=== PATIENT | female | born 1995 | race Caucasian/White ===

== ENCOUNTER → 2025-04-24 19:20 | Outpatient (ROUT) | payer OTHER, SELFPAY ==
[2025-04-24 19:26] LABS: Add Manual Diff / Slide Review NO; Basophils Absolute Auto 0 /uL (0-100); Basophils Percent Auto 0.4 % (0-2); Eosinophils Absolute Auto 100 /uL (0-450); Eosinophils Percent Auto 1.3 % (2-4); Hemoglobin 10.9 g/dL (12.0-16.0); Lymphocytes Absolute Auto 2000 /uL (1100-4500); Lymphocytes Percent Auto 18.7 % (25-40); Mean Corpuscular Hemoglobin 31.6 PG (26-34); Mean Corpuscular Volume 92.8 fL (80-100); Monocytes Absolute Auto 600 /uL (0-900); Monocytes Percent Auto 5.6 % (3-14); Neutrophils Absolute Auto 7900 /uL (1500-7000); Platelet Count 274 X10^3/uL (150-400); Red Blood Cell Count 3.45 X10^6/uL (4.0-5.2); Red Cell Distribution Width 12.1 % (11.6-14.8); White Blood Cell Count 10.8 X10^3/uL (4.5-11.0)
== END ==
PROVIDERS: Visit Provider Advanced Practice Midwife
DX: O99.019 Anemia complicating pregnancy, unspecified trimester (principal)
CPT/HCPCS: 85025

== ENCOUNTER → 2025-09-21 15:35 | Outpatient (CLI) | payer BC, SELFPAY ==
--- NOTE | 2025-09-21 15:36 | DI.US.S_ITS ---
PROCEDURE: US PELVIC COMPLETE INDICATIONS: CONTINUED BLEEDING - POST ?RETAINED PRODUCTS TECHNIQUE: Real-time scanning was performed of the pelvic organs, with image documentation. Additional endovaginal scanning was necessary due to incomplete visualization of the adnexal and endometrial structures by transabdominal scanning. COMPARISON: None. FINDINGS: The uterus is anteverted and measures 7.0 x 5.9 x 4.0 cm. Endometrial thickness is 13.3 mm. Uterus is heterogenous. Minimal complex fluid in the endometrial canal. Uterine fundus contains hyperechoic heterogenous structure with vascularity measuring approximately 1.1 x 1.7 x 0.9 cm. Cervix is unremarkable. Right ovary measures 2.6 x 1.8 x 1.7 cm with volume 4.2 mL. Left ovary measures 3.1 x 2.3 x 2.1 cm with volume 7.9 mL. Ovaries are unremarkable. No free fluid. IMPRESSION: Consistent with retained products of conception. We strive to produce accurate, complete, and clear reports of imaging services. To assist us in improving patient care, this report was composed using standard report templates and voice recognition software. Therefore, it may contain abnormal punctuation, insertions and/or omissions. Occasional wrong-word or sound-alike substitutions may occur. Though we review the report and make efforts to correct it, we do recommend that the report be read carefully in proper context to recognize any text inaccuracies. Dictated by: Wyatt Alas M.D. on 09/21/2025 at 17:38 Approved by: Wyatt Alas M.D. on 09/21/2025 at 17:40
== END ==
PROVIDERS: Referring Provider Nurse Practitioner Obstetrics & Gynecology; Visit Provider Nurse Practitioner Obstetrics & Gynecology
DX: O72.2 Delayed and secondary postpartum hemorrhage (principal); N93.9 Abnormal uterine and vaginal bleeding, unspecified
CPT/HCPCS: 76830; 76856

== ENCOUNTER → 2025-09-25 11:44 | Outpatient (CLI) | payer BC, SELFPAY ==
[2025-09-25 12:55] LABS: HCG Quantitative /Beta subunit < 2.39 mIU/mL
== END ==
PROVIDERS: Referring Provider Obstetrics & Gynecology; Visit Provider Obstetrics & Gynecology
DX: O73.1 Retained portions of placenta and membranes, without hemorrhage (principal)
CPT/HCPCS: 36415; 84702

== ENCOUNTER 2025-10-08 09:20 | Day surgery (SDC) | payer BC, SELFPAY ==
[2025-09-25 15:13] VITALS: BMI 25.9
[2025-10-08] VITALS (7 sets, daily range): BP systolic 103–119; BP diastolic 64–80; PULSE 67–88; RESP 12–16; TEMP 36.1–36.7; O2SAT 97–99
--- NOTE | 2025-10-08 | PATH_ITS ---
[facility] Accession Number: [id number] No. of containers..01 Tissue . 01 Material submitted: . endometrium - ENDOMETRIAL CONTENTS . 01 Diagnosis: ENDOMETRIAL CONTENTS: Poorly preserved products of conception with associated fibrin and calcification. Background weakly proliferative endometrium with dilated glands, suggestive of exogenous hormone effect; negative for endometrioid intraepithelial neoplasia or malignancy. LYK 10/18/2025 1557 Local . 01 Electronically signed: . Jennifer Stock MD, Pathologist NPI- [id number] . 01 Gross description: . Received in formalin with two patient identifiers, and endometrial contents is a 2.0 x 2.0 x 0.3 cm aggregate of bell-brown, rubbery tissue fragments, entirely submitted in A1. ([id number]) /MRV 10/13/2025 1339 Local . 01 Pathologist provided ICD-10: O73.1 . 01 CPT . 940666 Specimen Comment: A courtesy copy of this report has been sent to [facility] Pathology Performed at: [address] [id number] MD Agus Ferrari MD Phone: [phone]
[2025-10-08] MEDS: ACETAMINOPHEN 325 MG TABLET 975 MG PO (09:50)
[2025-10-08] MEDS: FAMOTIDINE 20 MG/2 ML VIAL IV (09:50)
[2025-10-08] MEDS: LACTATED RINGERS 1,000 ML 42 ML IV (09:52)
--- NOTE | 2025-10-08 10:00 | PM.GYNHP.1 ---
History of Present Illness History of Present Illness Reason for admission: vaginal bleeding Narrative: Annette Nicole is a 30 year old female s/p uncomplicated 07/30/25 ([facility]) presents for scheduled outpatient procedure secondary to persistent bleeding following delivery, abnormal pelvic US suggestive of calcified retained POC. Patient seen in office 09/25/[address] Allan, planned hysteroscopy with myosure resection of any abnormal pathology, concomittant placement of LNG-IUD. Patient denies significant changes in personal health history since time of office encounter. She affirms desire to proceed with procedure as scheduled including placement of Kyleena IUD for purposes of contraception. Surgical consent updated. [facility] Medical History Hip pain, chronic Surgical History History of hip surgery Family History Father Hypertension Grandmother Stroke Brother Ulcerative colitis Social History marital status: number of children: 1 household members: spouse lives independently: Yes caregiver/support person: No education level: master's degree occupational status: unemployed Smoking Status: Never smoker alcohol intake: former substance use type: does not use Meds Home Medications and Allergies Home Medications ?Medication ?Instructions ?Recorded ?Confirmed ?Type vit no.164-ferrous 1 tab PO .qday 07/29/25 10/08/25 History gluconate 6 mg-folate 833.5 mcg DFE tablet (Ellyn PNV) estradiol 10 mcg vaginal tablet 10 mcg vaginal Q3D 09/25/25 10/08/25 History Allergies Allergy/AdvReac Type Severity Reaction Status Date / Time No Known Drug Allergies Allergy Verified 10/08/25 09:42 Review of Systems Review of Systems ROS: Yes All systems reviewed with the patient and are negative except as otherwise documented Exam Vital Signs (past 8 hours): - 10/08/25 09:44 Temperature 98.1 F Pulse Rate 81 Respiratory Rate 16 Blood Pressure 110/80 Pulse Oximetry 98 Oxygen Delivery Method Room Air Oxygen Delivery Method Room Air Const General: cooperative, healthy appearing and comfortable Nutritional Appearance: average body habitus Orientation: alert, awake and oriented x3 Limitations: mental status not altered Resp Effort & Inspection: normal respiratory effort and able to speak in complete sentences Other: deferred Skin General: no rashes or lesions noted Neuro General: patient alert, patient awake and patient oriented x3 Extrem General: normal to inspection Psych Mental Status: mental status grossly normal Judgment: judgment good Assessment & Plan Assessment and plan (1) Retained products of conception after delivery without hemorrhage: Status: Acute Plan 30yo s/p 07/30/25 presents for scheduled outpatient hysteroscopy, persistent bleeding since delivery with abnormal pelvic US Patient affirms clinical history, desire to proceed with procedure as scheduled currently , anesthesia aware UPT negative on arrival dispo: to OR Time-Based Coding :: [TOTAL MINUTES] spent with patient and on the chart (including review of chart, obtaining history, exam, reviewing outside data, placing orders, documenting exam and treatment plan, and counseling patient) on [DATE].
--- NOTE | 2025-10-08 10:03 | PM.PREOP ---
Pre-operative Note Interval Note History & Physical reviewed/Exam performed by Physician: Yes Changes to H&P: No ASA Class (for procedural sedation): II
--- NOTE | 2025-10-08 10:38 | SUR.OPER ---
Lithotomy on padded OR bed, head on pillow, arms secured on padded arm boards at <90 degrees abduction. Legs secured in padded yellow fins stirrups. FINAL POSITIONING DONE BY PROVIDER
[2025-10-08] MEDS: KETOROLAC 30 MG/ML VIAL IV (11:13)
--- NOTE | 2025-10-08 11:13 | PM.OP.1 ---
Operative Date/Time/Diagnoses Date of procedure: 10/08/25 Time of procedure: 10:30 Pre-op diagnosis: AUB, abnormal pelvic US Post-op diagnosis: same Procedure & Clinicians Procedure: hysteroscopy, myosure resection of endometrial pathology, placement of kyleena IUD Same procedure(s) as scheduled: Yes Indications: AUB, abnormal pelvic US Surgeon: Rhonda Hobbs Assisted?: No Anesthesia Type: General Operative Notes Findings: normal external female genitalia, perineum, anus, urethra parous cervix with mild friability intrauterine cavity with adherent L lateral calcified material visually consistent with degenerating fibroid vs retained products of conception Specimen(s): other (endometrial contents ) Prosthetic devices, grafts, tissues, transplants, or devices: Kyleena IUD obtained from office supply: S/N [id number] Exp Lot [id number] Applied: none Estimated Blood Loss (mL): 5 Procedure in detail: Pt was taken to the operating room, transferred to OR table and anesthesia was induced with placement of ETT.? Pt had her legs placed in Frank stirrups and an exam under anesthesia was performed. The patient was prepped and draped in a sterile fashion.? A time out was performed. ?A sterile speculum was inserted into the vagina.? The cervix was visualized and grasped anteriorly using a single tooth tenaculum.? The uterus sounded to 8 cm and the cervical os was serially dilated using Stricklnad dilators up to 17f to allow for passage of the hysteroscope.? The 5mm 0 degree hysteroscope was then inserted into the uterus with findings as noted.? The small Myosure device was introduced and the endometrium including visualized pathology was fractionally resected under direct visualization.? The hysteroscope was removed and the kyleena IUD obtained from office supply was placed per banking services advisor instructions, strings trimmed to 3cm.? The tenaculum was removed and hemostasis was noted at insertion sites.? The speculum was removed and hemostasis was again noted to be excellent.? The patient then had her legs taken out of stirrups.? The patient tolerated the procedure well and without difficulty.? The patient was awakened from anesthesia and taken to PACU in stable condition. Complications: none
[2025-10-08] MEDS: ONDANSETRON 4 MG/2 ML INJ IV (11:39)
== END 2025-10-08 12:15 | disposition home or self-care (01) ==
PROVIDERS: Obstetrics & Gynecology; Referring Provider Obstetrics & Gynecology; Visit Provider Obstetrics & Gynecology
PROC: 0UDB8ZZ Extraction of Endometrium, Via Natural or Artificial Opening Endoscopic (ICD-10-PCS; CPT 58558; principal; 2025-10-08 10:45)
DX: O73.1 Retained portions of placenta and membranes, without hemorrhage (principal); Z30.430 Encounter for insertion of intrauterine contraceptive device
CPT/HCPCS: 58558; 58300; J7296; 81025; C1713; J1100; J1885; J2250; J2405; J2704; J3010; J3490; J7120